=== PATIENT | female | born 1985 | race Caucasian/White ===

== ENCOUNTER 2016-07-31 20:39 | Emergency (ER) | payer MEDICAID ==
[2016-07-31 21:29] VITALS: BP 137/87
== END 2016-07-31 21:29 | disposition home or self-care (01) ==
LOC: ED 20:39
DX: S39.012A Strain of muscle, fascia and tendon of lower back, initial encounter (principal); M54.32 Sciatica, left side; Z88.1 Allergy status to other antibiotic agents; Z79.899 Other long term (current) drug therapy; X58.XXXA Exposure to other specified factors, initial encounter; Y93.89 Activity, other specified; Y92.89 Other specified places as the place of occurrence of the external cause; Y99.8 Other external cause status
CPT/HCPCS: J1885

== ENCOUNTER 2016-09-03 17:42 | Emergency (ER) | payer MEDICAID ==
[~2016-09-03] VITALS: Ht 172.7 cm; Wt 105.8 kg
[2016-09-03 23:06] VITALS: BP 142/90
== END 2016-09-03 23:06 | disposition home or self-care (01) ==
LOC: ED 17:42
DX: R07.89 Other chest pain (principal); G89.29 Other chronic pain
CPT/HCPCS: J0780; J3010

== ENCOUNTER 2016-09-12 04:55 | Emergency (ER) | payer MEDICAID ==
[~2016-09-12] VITALS: Ht 172.7 cm; Wt 107.5 kg
[2016-09-12 07:37] VITALS: BP 127/82
== END 2016-09-12 07:37 | disposition home or self-care (01) ==
LOC: ED 04:55
DX: R10.9 Unspecified abdominal pain (principal)
CPT/HCPCS: J1885; J2270; J7030; Q0162

== ENCOUNTER 2016-09-30 15:06 | Emergency (ER) | payer MEDICAID ==
[2016-09-30 15:20] VITALS: BP 149/102
== END 2016-09-30 17:35 | disposition home or self-care (01) ==
LOC: ED 15:06
DX: L05.01 Pilonidal cyst with abscess (principal); Z79.899 Other long term (current) drug therapy; Z88.1 Allergy status to other antibiotic agents; Z86.32 Personal history of gestational diabetes; Z98.890 Other specified postprocedural states
CPT/HCPCS: J2001

== ENCOUNTER 2016-11-18 19:25 | Emergency (ER) | payer MEDICAID ==
[2016-11-18 21:18] LABS: CALCIUM 9.1 mg/dL (8.5-10.1); CHLORIDE SERUM 102 mmol/L (98-107); CREATININE SERUM 0.7 mg/dL (0.6-1.0); GFR1 > 60 mL/min; GLUCOSE SERUM 117 mg/dL (74-106); POTASSIUM SERUM 3.7 mmol/L (3.5-5.1); SODIUM SERUM 139 mmol/L (136-145)
[2016-11-18 21:21] LABS: BASOPHIL % 1.5 % (0-2); PLATELET COUNT 341 x10^3mcL (130-400); RED CELL DISTRIBUTION WIDTH 14.3 % (11.5-14.5)
[2016-11-18 21:23] LABS: ALBUMIN 3.6 g/dL (3.4-5.0); ALKALINE PHOSPHATASE 157 U/L (46-116); ALT/SGPT 47 U/L (14-59); AST/SGOT 40 U/L (15-37); BILIRUBIN TOTAL 0.26 mg/dL (0.20-1.00); TOTAL PROTEIN, SERUM 8.5 g/dL (6.4-8.2)
[2016-11-19 02:50] VITALS: BP 115/61
== END 2016-11-19 02:50 | disposition home or self-care (01) ==
LOC: ED 19:25
PROVIDERS: Emergency Medicine
DX: N83.202 Unspecified ovarian cyst, left side (principal); D25.9 Leiomyoma of uterus, unspecified; E86.0 Dehydration; Z88.0 Allergy status to penicillin; Z90.49 Acquired absence of other specified parts of digestive tract
CPT/HCPCS: J1885; J2270; J2405; J7030; Q0092; Q9967

== ENCOUNTER 2017-01-25 21:49 | Emergency (ER) | payer MEDICAID ==
[2017-01-25 23:35] LABS: BASOPHIL % 0.3 % (0-2); PLATELET COUNT 337 x10^3mcL (130-400); RED CELL DISTRIBUTION WIDTH 14.8 % (11.5-14.5)
[2017-01-25 23:49] LABS: CALCIUM 8.5 mg/dL (8.5-10.1); CARBON DIOXIDE 26.6 mmol/L (21-32); CHLORIDE SERUM 105 mmol/L (98-107); CREATININE SERUM 0.8 mg/dL (0.6-1.0); GFR1 > 60 mL/min; GLUCOSE SERUM 135 mg/dL (74-106); POTASSIUM SERUM 3.7 mmol/L (3.5-5.1); SODIUM SERUM 142 mmol/L (136-145)
[2017-01-26 00:03] LABS: ALBUMIN 3.4 g/dL (3.4-5.0); ALKALINE PHOSPHATASE 76 U/L (46-116); ALT/SGPT 45 U/L (14-59); AST/SGOT 27 U/L (15-37); BILIRUBIN TOTAL 0.2 mg/dL (0.20-1.00); LIPASE 107 IU/L (73-393); TOTAL PROTEIN, SERUM 7.4 g/dL (6.4-8.2)
[2017-01-26 00:22] LABS: microscopic required? NO
[2017-01-26 00:38] LABS: urine erythrocyte NEGATIVE (NEGATIVE)
[2017-01-26 02:05] VITALS: BP 128/75
== END 2017-01-26 01:50 | disposition home or self-care (01) ==
LOC: ED 21:49
PROVIDERS: Emergency Medicine
DX: R10.11 Right upper quadrant pain (principal); R30.0 Dysuria; R35.0 Frequency of micturition; R39.15 Urgency of urination; R11.2 Nausea with vomiting, unspecified; R19.7 Diarrhea, unspecified; R31.9 Hematuria, unspecified; R63.0 Anorexia; R50.9 Fever, unspecified; M54.16 Radiculopathy, lumbar region; Z90.49 Acquired absence of other specified parts of digestive tract; Z88.1 Allergy status to other antibiotic agents
CPT/HCPCS: J0696; J1885; J2405

== ENCOUNTER 2017-07-17 16:04 | Emergency (ER) | payer MEDICAID ==
[~2017-07-17] VITALS: Ht 172.7 cm; Wt 104.8 kg
[2017-07-17 16:16] VITALS: Ht 172.7 cm; Wt 104.8 kg
[2017-07-17 17:39] VITALS: BP 114/90
== END 2017-07-17 17:39 | disposition home or self-care (01) ==
LOC: ED 16:04
DX: L03.115 Cellulitis of right lower limb (principal); Z90.49 Acquired absence of other specified parts of digestive tract; Z88.1 Allergy status to other antibiotic agents; K58.9 Irritable bowel syndrome, unspecified; Z90.89 Acquired absence of other organs